=== PATIENT | female | born 1995 | race Caucasian/White ===

== ENCOUNTER 2018-04-26 11:48 | Day surgery (SDC) | payer OTHER ==
[~2018-04-26 11:48] MED LIST: Buffered Lidocaine 0.9% SYRIN* 5 ML/SYR SYRINGE INTRADERM ONE; Dexamethasone IV* 4 MG/ML 1 ML (4 MG) IV SLOW PU ONE; Famotidine IV* 10 MG/ML 2 ML (20 mg) IV ONE; Scopolamine 1.5 mg* PATCH TRANSDERM ONE
[2018-04-26] MEDS ORDERED: Bupivacaine 0.5% SDV PF* 30ML VIAL ONE (12:09)
[2018-04-26] MEDS ORDERED: fentaNYL* 50 MCG/ML 2 ML VIAL (100 MCG VIAL) IV PRN (12:12)
[2018-04-26] MEDS ORDERED: PROCHLORPERAZINE INJ 5 MG/ML 2 ML VIAL IV PRN (12:12)
[2018-04-26] MEDS ORDERED: Naloxone* 0.4 MG/ML 1 ML VIAL IV PRN (12:12)
[2018-04-26] MEDS ORDERED: oxyCODONE/Acetamin 5/325 MG* TAB PO PRN (12:12)
[2018-04-26] MEDS ORDERED: HYDROcodone/ACETAMIN 5-325 MG* 1 TAB PO PRN (12:12)
[2018-04-26] MEDS ORDERED: Ondansetron INJ* 2 MG/ML VIAL IV PRN (12:12)
[2018-04-26] MEDS ORDERED: Famotidine IV* 10 MG/ML 2 ML (20 mg) ONE (12:13)
[2018-04-26] MEDS ORDERED: Dexamethasone IV* 4 MG/ML 1 ML (4 MG) ONE (12:13)
[2018-04-26] MEDS ORDERED: Scopolamine 1.5 mg* PATCH ONE (12:13)
[2018-04-26] MEDS ORDERED: Clindamycin 900 MG IVPREMIX(* 900 MG/50 ML SDV IV ONE (12:13)
[2018-04-26] MEDS ORDERED: Lidocaine 2% PF * 5 ML VIAL ONE (12:31)
[2018-04-26] MEDS ORDERED: Midazolam* 1 MG/ML 2 ML VIAL (2 MG) ONE (12:31)
[2018-04-26] MEDS ORDERED: fentaNYL* 50 MCG/ML 2 ML VIAL (100 MCG VIAL) ONE (12:31)
[2018-04-26] MEDS ORDERED: Propofol* 10 MG/ML 20 ML BTL IV PUSH ONE (12:31)
[2018-04-26] MEDS ORDERED: Mivacurium Chloride* 20 MG/10 ML VIAL IV ONE (12:32)
[2018-04-26] MEDS ORDERED: ROPIVACAINE 5 MG/ML 30 ML BTL (0.5%) ONE (13:07)
[2018-04-26] MEDS ORDERED: Ketorolac INJ* 30 MG/ML 1 ML VIAL ONE (14:50)
[2018-04-26] MEDS ORDERED: PROCHLORPERAZINE INJ 5 MG/ML 2 ML VIAL ONE (15:06)
[2018-04-26 18:18] VITALS: BP 128/79
--- NOTE | 2018-04-28 06:04 | OP ---
DATE OF OPERATION: 04/26/18 - [facility] DATE OF : [birth year] SURGEON: Moises Bower MD CONTENT CHECKER: MADELEINE Rojas. An circulation assistant was needed for the entirety of the case to help with positioning, retraction, and was utilized throughout all portions of the case. ANESTHESIOLOGIST: Dr. Luz. ANESTHESIA: General interscalene block. PRE-OP DIAGNOSIS: Right shoulder anterior labral tear with bicipital tendinitis. POST-OP DIAGNOSIS: Right shoulder anterior labral tear with bicipital tendinitis. OPERATIVE PROCEDURE: 1. Right shoulder arthroscopy with labral repair. 2. Open subpectoral biceps tenodesis. 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 She has had pain which is anteriorly based. She could not throw. She had an MR arthrogram which she is here for review. She states that she does not feel as she has had multiple dislocations , but her shoulder does not feel right. We injected her biceps which she responded to. She was able to compete. She has now graduated and interested in surgical treatment. Risks and benefits of surgery were discussed in length, included but were not limited to bleeding, infection, damage to nerves, vessels , surrounding structures, wound nonhealing, persistent pain, need for surgery, scaring, stiffness, incomplete relief of symptoms, and risks of anesthesia. PROCEDURE IN DETAIL: The patient was greeted in the preoperative area by the attending surgeon. Correct extremity was marked, consent was confirmed. The patient was then brought back to the operating suite where she was placed in a supine position on the operating room table. She then underwent general anesthesia endotracheal intubation, after which she was positioned in the left lateral decubitus position with an axillary roll. All bony prominences were padded. She was secured with a peg board. The right shoulder was draped unsterile with 10 pounds of traction. The right shoulder was then prepped and draped in the usual sterile fashion beginning with Chlorhexidine soap, scrub, and alcohol wipe, and a final prep with ChloraPrep. An examination was done under anesthesia demonstrated 2+ anterior glide. After appropriate surgical pause indicating site, side, procedure, and administration of antibiotics the standard posterolateral portal was made sharp with an 11 blade. The scope was introduced into the joint, joint was examined. The glenohumeral joint had grade 0 to 1 changes. The anterior labrum had healed back, but had evidence of tearing. The superior labrum had tearing as well and there was instability of the biceps iris. The undersurface of the rotator cuff was intact, specifically the supraspinatus. The subscapularis was intact. The lower anterior portal was then made using an 18-gauge needle for localization just superior to the subscap and an 8-mm cannula was placed and a second cannula was placed more superiorly in the interval which is a 5-mm cannula. Once the working portals were established, an elevator was used to elevate the labrum from the 3 o'clock to the 6 o'clock position. Also there was a positive drive-through sign. Once the labrum was elevated to allow for full release in conjunction with the capsule, the capsule was then rasped using the double-sided rasp. The glenoid was then also repaired using a small ball rasp, double-sided rasp, as well as the shaver to allow for good bony bleeding bed. After this was complete, the attention was directed to the anchor placement. A [employer] Bioraptor was placed at the 5:30 position with excellent purchase. Sutures were then passed in the horizontal mattress configuration to grasp the capsule and labrum, allow for inferior to superior shift. This was tied down using arthroscopic knot tying. A second was placed at the 4:30 position, passed in simple fashion, and the third one was placed at the 3:30 position in a similar fashion and simple fashion. These were tied down. This helped to restore the labrum and eliminate drive-through sign. At this point, the biceps was taken through range of motion again. She had previous biceps symptoms as well as some tearing of the superior labrum and the iris. The biceps were then tenotomized for tenodesis. Final images were obtained and the wounds were copiously irrigated with sterile saline. Attention was directed to the biceps. The anterior aspect of the shoulder was prepped again using a ChloraPrep, 5 cc of 0.5% Marcaine were injected prior to incision, which was made with a 15 blade. Soft tissues were carefully dissected to expose the fascia. The remainder of the dissection was done bluntly and the pec was elevated. The bicipital groove was palpated, biceps was brought through the wound. The groove was then prepared in the usual fashion with electrocautery device, the red ball rasp and osteotome to allow for bony bleeding bed. The Q-Fix drill guide was then placed and drilled unicortically and the Q-Fix was deployed with excellent purchase. Sutures were then passed through the tendon approximately 1 cm from proximal musculotendinous junction in a Keith Sam type configuration. The excess stump was excised and the biceps was shuttled back to the wound and tied down. Wounds were copiously irrigated with sterile saline. The portals were closed with 3-0 nylon. The anterior wound was closed with 2-0 Vicryl and 3-0 Monocryl. Sterile dressings were applied and the wound was injected with 10 cc of 0.5% Marcaine. A Cryo/Cuff and UltraSling were applied. She was awoken from anesthesia and transferred to PACU in stable condition. POSTOPERATIVE PLAN: She will be nonweightbearing. She will be in a sling for approximately 4 to 5 weeks. She will be discharged on pain medications, antibiotics. I will see the patient back in about 14 days. DVT prophylaxis was considered but deferred due to no previous or personal history. [id number]/[facility] #: [id number] PATRICIA
[2018-04-29] MEDS ORDERED: Scopolamine PATCH Remove* 1 NOTE MISC PATCH OFF ONE (06:00)
== END 2018-04-26 18:46 | disposition home or self-care (01) ==
LOC: OR 11:48
PROVIDERS: ATTEND Orthopaedic Surgery
DX: S43.491A Other sprain of right shoulder joint, initial encounter (principal); M75.21 Bicipital tendinitis, right shoulder; R00.2 Palpitations; X50.0XXA Overexertion from strenuous movement or load, initial encounter; Y93.B3 Activity, free weights; Y92.39 Other specified sports and athletic area as the place of occurrence of the external cause; G89.18 Other acute postprocedural pain
CPT/HCPCS: 81025; A9270-GY; C1776; J0780; J1100; J1885; J2250; J2704; J2795; J3010